=== PATIENT | female | born 1985 | race Hispanic/Latino ===

== ENCOUNTER 2017-10-11 12:07 | Inpatient (IN) | payer MEDICAID, SELFPAY ==
[2017-10-11 12:58] VITALS: BMI 38.4
[2017-10-11] MEDS ORDERED: FLU VACC QS2017-18 36 mo. & older 0.5 ML SYRINGE IM ONE (13:30)
--- NOTE | 2017-10-11 14:01 | PDOC.LDHP ---
Labor and Delivery H&P Chief complaint: other (DENISE 5.3 EFW<10% on U/S today; sent for evaluation of poss IUGR) HPI: 32yo at 40.1 wks presents after U/S today showed DENISE 5.3 and EFW <10th percentile. Was 24th percentile earlier in and has remained low. Pt denies vaginal bleeding, loss of fluid, or contractions. No complaints today. She has hx twin delivery via likely LTCS at 35 wks on 03/08/06 for reported HTN and possibly decreased EFW. Endorses having babies at [facility] although not found in our records. Current gestational age (weeks): 40 Due date: 10/10/17 Dating criteria: first trimester ultrasound (dating adjusted from LMP) Grav: 2 Para: 2 OB History Details: -prior pre-term twin delivery by suspected LTCS on 03/08/2006 at 35 wks for HTN per pt; no records found in [employer] -history of HTN at delivery but unclear if pre-eclampsia Current complications: other (low EFW) Abnormal US findings: Yes (EFW <10%, DENISE 5.3) Past Medical History: none Current medications: pre-devin vitamins, other (ASA 81 mg) Previous surgical history: low tranverse CS (reported although records not actually found in computer) Social history: none - Physical Exam Vital signs reviewed and normal: yes General: NAD Heart: RRR Lungs: CTAB Abdomen: gravid (150 bpm/moderate variability/ accels/ no decels/ no contractions) Extremeties: no edema FHT: category 1 Bridger contractions every: none - OB Labs Blood type: O RH: positive Antibody Screen: negative HIV: negative RPR: negative HEPSAg: negative 1 hour GCT: negative GBS: negative Urine drug screen: not done Rubella: non-immune Additional Labs: GC/C negative - Assessment L&D Assessment: scheduled repeat section - Plan Plan: admit to L&D, to OR for section (Plan for C/S at 5pm by Dr. Medina with assistance from Dr. Cisse. Pt has low probability of successful TOLAC (44.7%) and borderline oligohydramnios today with continued drop in EFW to <10%.) <Pito Cantu - Last Filed: 10/11/17 13:51> <Melva Medina - Last Filed: 10/11/17 15:44> Allergies/Adverse Reactions: Allergies Allergy/AdvReac Type Severity Reaction Status Date / Time No Known Allergies Allergy Unverified 10/11/17 12:48 Attending Addendum - Attending Addendum I personally evaluated the patient and discussed the management with Dr. Cantu. I agree with the History, Examination, Assessment and Plan documented above with any addition or exceptions noted below. Past medical history includes morbid obesity. Patient counseled and agrees to proceed with repeat LTCS. <Melva Medina - Last Filed: 10/11/17 15:44>
[2017-10-11] MEDS ORDERED: Ondansetron HCl/PF 4 MG/2 ML Vial IVP PRN ×3 (14:22→20:21)
[2017-10-11] MEDS ORDERED: Promethazine HCl 25 MG/ML VIAL IM PRN ×2 (14:22→20:21)
[2017-10-11] MEDS ORDERED: Acetaminophen 500 MG TAB PO PRN (14:22)
[2017-10-11] MEDS ORDERED: Bicitra 30 ML UDCUP PO SCH (14:30)
[2017-10-11] MEDS ORDERED: CEFAZOLIN/Water 2 GM/20 ML SYRINGE SLOW IVP SCH (14:30)
[2017-10-11 14:52] LABS: Hemoglobin 13.2 g/dL (12.0-16.0); Mean Corpuscular HGB CONC 33.6 g/dL (32.0-36.0); Mean Corpuscular Hemoglobin 30.2 pg (27.0-31.0); Mean Corpuscular Volume 90.1 fl (81.0-99.0); Mean Platelet Volume 7.5 fL (7.4-10.4); Platelet Count 221 thou/uL (130-400); RBC Distribution Width 12.7 % (11.5-14.5); Red Blood Cell (RBC) Count 4.35 mill/uL (4.20-5.40); White Blood Cell (WBC) Count 8.6 thou/uL (4.8-10.8)
[2017-10-11 15:33] LABS: HBSAg Index 0.18 S/CO (0-0.99); Hep B Surf Ag Non-Reactive S/CO (NonReactive)
[2017-10-11] MEDS ORDERED: Lactated Ringer's 1,000 ML IV SCH (16:15)
[2017-10-11] MEDS ORDERED: Ondansetron HCl/PF 4 MG/2 ML Vial ONE ×2 (16:23→18:22)
[2017-10-11] MEDS ORDERED: Ketorolac Tromethamine 30 MG/ML VIAL ONE ×2 (16:23→18:22)
[2017-10-11] MEDS ORDERED: PHENYLEPHRINE-NS 100 MCG/ML 10 ML SYRINGE ONE ×2 (16:23→18:22)
[2017-10-11] MEDS ORDERED: Dexamethasone 20 MG/5 ML VIAL ONE (16:23)
[2017-10-11 16:47] LABS: Syphilis Antibody Nonreactive (Nonreactive); Syphilis Antibody Index 0.03 S/CO (<1.00 Non-Reactive)
[2017-10-11] MEDS ORDERED: Morphine PF 1 MG/ML SYR ONE (18:21)
[2017-10-11] MEDS ORDERED: Dexamethasone 4 mg/ml Vial ONE (18:22)
[2017-10-11] MEDS ORDERED: Oxytocin 10 UNITS/ML VIAL ONE ×2 (19:17→19:42)
[2017-10-11] MEDS ORDERED: HYDROmorphone 2 MG/ML VIAL SLOW IVP PRN (20:21)
[2017-10-11] MEDS ORDERED: Ketorolac Tromethamine 30 MG/ML VIAL IVP PRN (20:21)
[2017-10-11] MEDS ORDERED: Meperidine HCl/PF 25 MG/ML VIAL SLOW IVP PRN (20:21)
[2017-10-11] MEDS ORDERED: Eucerin (Mineral Oil/Petrolatum,White) 30 gm Jar TOP PRN (20:21)
[2017-10-11] MEDS ORDERED: Promethazine HCl 25 MG SUPP PR PRN (20:21)
[2017-10-11] MEDS ORDERED: Naloxone HCl 0.4 mg/ml Vial IVP PRN ×2 (20:21)
[2017-10-11] MEDS ORDERED: diphenhydrAMINE 50 MG/ML VIAL IVP PRN (20:21)
[2017-10-11] MEDS ORDERED: Naloxone HCl 0.4 mg/ml Vial IV PRN (20:21)
[2017-10-11] MEDS ORDERED: Communication Order-Pharmacy FS SCH (20:30)
[2017-10-11] MEDS ORDERED: Ketorolac Tromethamine 30 MG/ML VIAL IVP SCH (20:30)
[2017-10-11] MEDS ORDERED: Adacel (T-DAP) 0.5 ML VIAL IM ONE (22:36)
[2017-10-11] MEDS ORDERED: HYDROcodone/Acetaminophen 5/325 mg Tablet PO PRN ×2 (22:36)
[2017-10-11] MEDS ORDERED: Lanolin Ointment 7 GM TUBE TOP PRN (22:36)
[2017-10-11] MEDS ORDERED: Ibuprofen 800 MG TAB PO SCH (22:45)
[2017-10-12] MEDS ORDERED: LR / Pitocin 40 units/1000 ml 1,000 ML ONE (02:30)
[2017-10-12 05:56] LABS: Mean Corpuscular HGB CONC 33.6 g/dL (32.0-36.0); Mean Corpuscular Hemoglobin 30.3 pg (27.0-31.0); Mean Corpuscular Volume 90.2 fl (81.0-99.0); Mean Platelet Volume 7.8 fL (7.4-10.4); Platelet Count 218 thou/uL (130-400); RBC Distribution Width 12.8 % (11.5-14.5); Red Blood Cell (RBC) Count 4.27 mill/uL (4.20-5.40); White Blood Cell (WBC) Count 9.1 thou/uL (4.8-10.8)
--- NOTE | 2017-10-12 06:47 | PDOC.PP ---
Post Progress Note Post Day #: 1 Subjective: Feeling well. Pain is adequately controlled. Has not ambulated yet but is without issue. Tolerating PO. PO intake tolerated: yes Flatus: no Ambulation: no Vital Signs (12 hours) Temp Pulse Resp BP Pulse Ox 10/12/17 03:09 97.9 F 70 18 113/64 10/11/17 23:55 98 F 63 18 121/70 10/11/17 22:36 97.6 F 59 L 18 121/80 96 10/11/17 19:30 98.1 F 83 20 Weight Weight 95.254 kg - Physical Examination General: NAD Cardiovascular: no m/r/g, RRR Respiratory: clear to auscultation bilaterally, non-labored breathing Abdominal: + bowel sounds, lochia, no distention, appropriately TTP Fundus firm & at: below umbilicus Extremities: negative homans (B) Skin: CS incision dry & intact (pressure dressing in place, no drainage), no rash Neurological: no gross focal deficits Psychiatric: A&Ox3, normal affect Result Diagrams: 10/12/17 05:11 Additional Labs: Post Labs Blood Type O POSITIVE 10/11/17 14:40 Hep Bs Antigen Non-Reactive S/CO (NonReactive) 10/11/17 14:40 (1) Previous section Code(s): Z98.891 - HISTORY OF UTERINE SCAR FROM PREVIOUS SURGERY Status: Acute (2) Status: Acute - Assessment/Plan 1. PPD #1 - Meeting all PP milestones - Shrestha out this morning and encourage ambulation - - Desires nexplanon/IUD for pp contraception - Likely d/c tomorrow 2. s/p C/S x2 - Will likely need C/S for future pregnancies <Genesis Cisse - Last Filed: 10/12/17 06:59> Vital Signs (12 hours) Temp Pulse Resp BP Pulse Ox 10/12/17 03:09 97.9 F 70 18 113/64 10/11/17 23:55 98 F 63 18 121/70 10/11/17 22:36 97.6 F 59 L 18 121/80 96 10/11/17 19:30 98.1 F 83 20 Weight Weight 210 lb Result Diagrams: 10/12/17 05:11 Additional Labs: Post Labs Blood Type O POSITIVE 10/11/17 14:40 Hep Bs Antigen Non-Reactive S/CO (NonReactive) 10/11/17 14:40 <Melva Medina - Last Filed: 10/12/17 07:06> Attending Addendum - Attending Addendum I personally evaluated the patient and discussed the management with Dr. Cisse. I agree with the History, Examination, Assessment and Plan documented above. Proceed with routine day 1 orders. <Melva Medina - Last Filed: 10/12/17 07:06>
--- NOTE | 2017-10-12 07:06 | OP-2 ---
DATE OF PROCEDURE: 10/11/2017 RESIDENT SURGEON: Genesis Cisse M.D. PATTERN CHAIN BUILDER SURGEON: Valdo Peterson M.D. ATTENDING SURGEON: Melva Medina M.D. PROCEDURE: Repeat low transverse . PREOPERATIVE DIAGNOSES: 1. Term intrauterine . 2. Previous section. 3. IUGR 4. Oligohydramnios. POSTOPERATIVE DIAGNOSES: 1. Term intrauterine , delivered. 2. Previous section. 3. IUGR 4. Oligohydramnios. ANESTHESIA: Spinal. INDICATIONS: The patient is a 32-year-old female, G2, P1-0-0-1 at 40 weeks and 1 day gestation who presented for repeat secondary to IUGR and oligohydramnios. PROCEDURE IN DETAIL: After risks, benefits, and alternatives were explained to patient, she gave informed consent. Preoperative antibiotics included cefazolin 2 grams IV. The patient was taken to the operating room and spinal anesthesia was initiated. She was placed in the supine position with left tilt and prepped and draped in the usual sterile fashion. A Pfannenstiel incision was made with scalpel and carried to the level of fascia which was sharply nicked. A fascial edge was extended bilaterally with Espinal scissors. The superior and inferior edges of the cut fascial edges were elevated with Tyesha clamps and underlying rectus muscles were sharply and bluntly dissected free. Extensive adhesions were noted in addition to scar tissue and rectal plane. The recti were divided digitally and retracted manually after adhesions were broken down with the Bovie cautery. The perineum was entered bluntly and retracted manually. An Duong O was placed. Low transverse score was made with scalpel and the uterus was entered in the midline with the scalpel. A light meconium was noted in the fluid. The hysterotomy was extended manually. The infant was noted to be vertex and easily delivered by fundal pressure. Mouth and nares were bulb suctioned. Cord was clamped and cut and grossly normal female who was handed to awaiting nurse. Cord blood was obtained. The placenta was manually retracted with fundal pressure and gentle traction, found to be intact with three-vessel cord and sent to the pathology for evaluation. The endometrium was curetted with a dry lap. Placenta was extracted with fundal pressure and gentle traction, found to be intact with three-vessel cord and sent to pathology for evaluation. The uterus was closed with a running locking 1-0 Monocryl suture. Following this, hemostasis was noted. The abdomen was irrigated with saline and suctioned free of clots. The left tube and ovary were noted to be unremarkable, the right tube and ovary were not visualized secondary to adhesions. The hysterotomy was again noted to be hemostatic. The fascia was closed with a running nonlocking 0 PDS suture x2. The subcutaneous tissue was irrigated and bleeders were stopped with Bovie cautery. The subcutaneous tissue was approximated with 2 running layers of 2-0 plain gut sutures. The skin was approximated with 4-0 Monocryl suture. Dermabond was applied. Pressure dressing was placed. All counts were correct. The patient tolerated the procedure well and was taken to recovery room in stable condition. ESTIMATED BLOOD LOSS: 700 mL. COMPLICATIONS: None. ASSESSMENT: Cord blood sent to lab for blood type and placenta to pathology. FINDINGS: Grossly normal female infant with Apgars of 8 and 9. Grossly normal placenta sent to pathology. DRAINS: Shrestha to gravity draining clear urine. MTDD
[2017-10-12] MEDS: Prenatal Vitamin 1 TAB PO SCH (08:36)
[2017-10-12] MEDS: HYDROcodone/Acetaminophen 5/325 mg Tablet PO PRN ×2 (13:04→19:39)
[2017-10-12] MEDS: Ibuprofen 800 MG TAB PO SCH (19:38)
[2017-10-12] MEDS ORDERED: Simethicone Chewable 80 MG TAB PO PRN (21:21)
[2017-10-12] MEDS ORDERED: Docusate Calcium (SURFAK) 240 MG CAP PO SCH (21:30)
[2017-10-13] MEDS ORDERED: Ibuprofen 800 MG TAB PO SCH (06:00)
[2017-10-13] MEDS: Ibuprofen 800 MG TAB PO SCH ×3 (06:15→21:55)
[2017-10-13] MEDS: HYDROcodone/Acetaminophen 5/325 mg Tablet PO PRN ×3 (06:27→14:46)
--- NOTE | 2017-10-13 06:29 | PDOC.PP ---
Post Progress Note Post Day #: 2 Subjective: Pt is having somewhat more pain this morning since ambulating yesterday, especially with coughing and getting out of bed. PO intake tolerated: yes Flatus: yes Ambulation: yes Vital Signs (12 hours) Temp Pulse Resp BP 10/13/17 00:00 98.8 F 84 20 103/55 L 10/12/17 20:00 97.6 F 86 20 116/65 Weight Weight 95.254 kg - Physical Examination General: NAD Cardiovascular: no m/r/g, RRR Respiratory: clear to auscultation bilaterally Abdominal: lochia (minimal), no distention, appropriately TTP Fundus firm & at: umbilicus Skin: CS incision dry & intact (subcuticular sutures in place with overlying glue), no rash Neurological: no gross focal deficits Psychiatric: A&Ox3, normal affect Result Diagrams: 10/12/17 05:11 Additional Labs: Post Labs Blood Type O POSITIVE 10/11/17 14:40 Hep Bs Antigen Non-Reactive S/CO (NonReactive) 10/11/17 14:40 (1) delivery delivered Code(s): O82 - ENCOUNTER FOR DELIVERY WITHOUT INDICATION Status: Acute (2) Previous section Code(s): Z98.891 - HISTORY OF UTERINE SCAR FROM PREVIOUS SURGERY Status: Acute (3) IUGR (intrauterine growth restriction) Status: Acute - Assessment/Plan 32 yo POD#2/PPD#2 s/p RLTCS for IUGR + oligo in pt with prior c/s x 1-- Progressing well in course. pain as expected post-operatively. counseled pt on pain regimen and when to take/request meds. Pt will be re-evaluated this evening if she would like to go home to assure pain is well controlled; otherwise, anticipate discharge home tomorrow am. F/U at [facility] and with Dr. Cisse within 2 weeks of discharge. <Luma Smith - Last Filed: 10/13/17 06:38> Weight Weight 95.254 kg Result Diagrams: 10/14/17 07:10 Additional Labs: Post Labs Blood Type O POSITIVE 10/11/17 14:40 Hep Bs Antigen Non-Reactive S/CO (NonReactive) 10/11/17 14:40 <Craig Stewart - Last Filed: 10/15/17 08:12> Assessment/Plan - Plan Plan: I reviewed this pt. with Dr. Smith and agree with plan. BZ <Craig Stewart - Last Filed: 10/15/17 08:12>
[2017-10-13] MEDS: Prenatal Vitamin 1 TAB PO SCH (08:30)
[2017-10-13] MEDS: Docusate Calcium (SURFAK) 240 MG CAP PO SCH ×2 (08:30→21:55)
[2017-10-14] MEDS: HYDROcodone/Acetaminophen 5/325 mg Tablet PO PRN ×2 (03:57→12:31)
[2017-10-14] MEDS: Ibuprofen 800 MG TAB PO SCH ×2 (05:52→14:34)
--- NOTE | 2017-10-14 06:24 | PDOC.PP ---
Post Progress Note Post Day #: 3 Subjective: Pain adequately controlled this morning. She rates it as a 4/10 after taking 2 norco earlier this morning. She is having some difficulty with but has been using the pump successfully. PO intake tolerated: yes Flatus: yes Ambulation: yes Vital Signs (12 hours) Temp Pulse Resp BP 10/13/17 19:21 98.2 F 88 18 121/67 Weight Weight 95.254 kg - Physical Examination General: NAD Cardiovascular: no m/r/g, RRR Respiratory: clear to auscultation bilaterally, non-labored breathing Abdominal: + bowel sounds, lochia (minimal), no distention, appropriately TTP Fundus firm & at: umbilicus/below Extremities: negative homans (B) Skin: CS incision dry & intact, no rash Neurological: no gross focal deficits Psychiatric: A&Ox3, normal affect Result Diagrams: 10/12/17 05:11 Additional Labs: Post Labs Blood Type O POSITIVE 10/11/17 14:40 Hep Bs Antigen Non-Reactive S/CO (NonReactive) 10/11/17 14:40 (1) Previous section Code(s): Z98.891 - HISTORY OF UTERINE SCAR FROM PREVIOUS SURGERY Status: Acute (2) Status: Acute - Assessment/Plan 1. PPD #3 from repeat LTCS for IUGR and oligohydramnios - Pain adequately controlled - Appreciate Almaz's assistance with if able to meet with her today - Continue to encourage ambulation and plan to discharge this afternoon - Will recheck H&H with pain persistent to confirm stable - Incision clean and dry
[2017-10-14 07:26] LABS: Hemoglobin 11.6 g/dL (12.0-16.0); Platelet Count 214 thou/uL (130-400)
[2017-10-14 08:00] VITALS: BP 120/73; TEMP 98.8
[2017-10-14] MEDS: Docusate Calcium (SURFAK) 240 MG CAP PO SCH (09:18)
[2017-10-14] MEDS: Prenatal Vitamin 1 TAB PO SCH (09:18)
[2017-10-14] MEDS ORDERED: Acetaminophen/Codeine 30-300mg Tablet PO ONE (16:47)
== END 2017-10-14 17:50 | disposition home or self-care (01) | DRG 765 ==
LOC: L&D/OP 12:07 → L&D 14:22 → 3SW 22:33
PROVIDERS: ADMIT Obstetrics & Gynecology; ATTEND Obstetrics & Gynecology
PROC: 10D00Z1 Extraction of Products of Conception, Low, Open Approach (ICD-10-PCS; principal; 2017-10-11)
DX: O34.211 Maternal care for low transverse scar from previous cesarean delivery (principal); O41.03X0 Oligohydramnios, third trimester, not applicable or unspecified; Z3A.40 40 weeks gestation of pregnancy; Z37.0 Single live birth; O36.5930 Maternal care for other known or suspected poor fetal growth, third trimester, not applicable or unspecified
CPT/HCPCS: 36415; 51702; 85014; 85018; 85027; 85049; 86780; 86850; 86900; 86901; 87340; 88307; 99285; A4216; J1100; J1885; J2274; J2405; J2590

== ENCOUNTER 2021-05-01 19:58 | Emergency (ER) | payer MEDICAID, SELFPAY ==
[~2021-05-01 19:58] MED LIST: Iopamidol-370 76% 500 ML 1 ML ONE
[2021-05-01 20:57] LABS: #Lymphocytes 1.6 thou/uL (1.20-3.40); #Monocytes 0.4 thou/uL (0.11-0.59); #Neutrophils 4.1 thou/uL (1.40-6.50); %Basophils 0.7 % (0.0-1.0); %Eosinophils 0.2 % (0.0-10.0); %Lymphocytes 26.4 % (21.0-51.0); %Monocytes 5.8 % (0.0-10.0); %Neutrophils 66.8 % (42.0-75.0); Mean Corpuscular HGB CONC 34.9 g/dL (32.0-36.0); Mean Corpuscular Hemoglobin 30.4 pg (27.0-31.0); Mean Corpuscular Volume 86.9 fL (78.0-98.0); Mean Platelet Volume 7.8 fL (7.4-10.4); Platelet Count 191 thou/uL (130-400); Red Blood Cell (RBC) Count 4.62 mill/uL (4.20-5.40); White Blood Cell (WBC) Count 6.2 thou/uL (4.8-10.8)
[2021-05-01 21:20] LABS: ALT (SGPT) 66 U/L (8-55); AST (SGOT) 93 U/L (5-34); Albumin 4.2 g/dL (3.5-5.0); Alkaline Phosphatase 77 U/L (40-110); Anion Gap 17 mmol/L (10-20); BUN (Urea Nitrogen) 8 mg/dL (7.0-18.7); Bilirubin, Total 0.4 mg/dL (0.2-1.2); Calc. Creatinine Clearance 0 mL/min (70-130); Calcium 8.8 mg/dL (7.8-10.44); Carbon Dioxide 22 mmol/L (22-29); Chloride 102 mmol/L (98-107); Glucose 107 mg/dL (70-105); Potassium 3.6 mmol/L (3.5-5.1); Protein, Total 7.2 g/dL (6.0-8.3); Sodium 137 mmol/L (136-145)
[2021-05-01 22:49] LABS: BHCG - Serum Negative (NEGATIVE); Pregs Control Background? CLEAR/WHITE (CLR/WHITE); Pregs Control Bar Appear? YES (CONTROL BAR)
== END 2021-05-02 | disposition home or self-care (01) ==
LOC: ERS 19:58
DX: U07.1 COVID-19 (principal); R74.8 Abnormal levels of other serum enzymes; R00.0 Tachycardia, unspecified
CPT/HCPCS: 36415; 71045; 71275; 80053; 83880; 84484; 84703; 85025; 85379; 93005; Q9967